=== PATIENT | male | born 1995 | race Caucasian/White ===

== ENCOUNTER 2021-09-06 16:16 | Emergency (ER) | payer SELFPAY ==
--- NOTE | ~2021-09-06 | XR_ITS ---
XR knee LT 2V DATE: 09/06/2021 16:44 INDICATION: Knee injury. Anterior pain. TECHNIQUE: AP and crosstable lateral views COMPARISON: None FINDINGS: No fracture or dislocation, periosteal reaction or bone destruction, radiopaque intra-artic ular loose body or chondrocalcinosis or significant joint space narrowing. IMPRESSION: Negative Reviewed, dictated and finalized at location A. IMPRESSION: Negative
--- NOTE | ~2021-09-06 | XR_ITS ---
XR foot LT 2V DATE: 09/06/2021 16:44 INDICATION: Foot injury, pain TECHNIQUE: AP and lateral views COMPARISON: None FINDINGS: No fracture or dislocation, periosteal reaction or bone destruction. Joint spaces are prese rved. No erosive change. IMPRESSION: Negative Reviewed, dictated and finalized at location A. IMPRESSION: Negative
--- NOTE | ~2021-09-06 | XR_ITS ---
XR ankle LT 2V DATE: 09/06/2021 16:44 INDICATION: Ankle injury. Lateral pain. TECHNIQUE: 2 views COMPARISON: None FINDINGS: No fracture or dislocation of the ankle or disruption of the ankle mortise. No periosteal r eaction or bone destruction. IMPRESSION: Negative Reviewed, dictated and finalized at location A. IMPRESSION: Negative
[2021-09-06 16:20] VITALS: BP 155/99; PULSE 90; RESP 16; TEMP 36.6; O2SAT 98
[2021-09-06] MEDS: KETOROLAC (*BKC) 60 MG/2 ML VIAL IM (16:42)
--- NOTE | 2021-09-06 17:02 | ED.LOWEXIN ---
HPI - Extremity Injury (Lower) General Chief Complaint: Extremity Injury, Lower Stated Complaint: LT leg injury Source: patient and family Mode of arrival: ambulatory Limitations: no limitations History of Present Illness HPI Narrative: this is a 26-year-old male that presents with some left foot ankle and knee pain with some mild swelling after he was at work and was working with some cows and was thrown by a [place] and landing on his foot and ankle causing pain that he rates at about a 7/10 with some mild swelling decreased range of motion secondary to swelling and pain. MD complaint: knee injury, ankle injury, foot injury and fall Onset (ago): hour(s) Type of Injury: blunt and inversion Place: work Severity: moderate Severity scale (1-10): 7 Relieving factors: immobilization and rest Exacerbating factors: weight bearing, movement and palpation Related Data Home Medications Medication Instructions Recorded Confirmed cetirizine 10 mg capsule (Zyrtec) 10 mg PO DAILY 09/06/21 09/06/21 Allergies Allergy/AdvReac Type Severity Reaction Status Date / Time No Known Allergies Allergy Unverified 09/06/21 16:30 Review of Systems Review of Systems: All systems reviewed & are unremarkable except as noted in HPI and below PMFSH Past Medical History Medical History Patient denies medical problems Exam Const: General: healthy appearing Limitations: no limitations HENMT: Head: normal to inspection Eyes: Conjunctivae: conjunctivae normal Neck: Neck: normal visual inspection Chest: Chest palpation & inspection: normal inspection of the chest Cardio: Rate: regular rate Rhythm: regular rhythm GI: GI Palp: Yes Soft to palpation Auscultation: normal bowel sounds Skin: General skin exam: normal color Rashes: no rashes Wounds: no wounds Neuro: General: patient oriented x3 and moves all extremities Extrem: Other: tender and mild swelling and left foot and ankle Psych: Mental Status: mental status grossly normal Affect: normal affect Course Course Emergency Course: patient received IM Toradol and reassessment of patient pain has improved and x-rays reviewed with patient will place an Quinn wrap on the foot and ankle and advised patient to take ibuprofen. Vital Signs Vital signs: Vital Signs Temperature 36.6 C 09/06/21 16:20 Pulse Rate 90 09/06/21 16:20 Respiratory Rate 16 09/06/21 16:20 Blood Pressure 155/99 H 09/06/21 16:20 Pulse Oximetry 98 09/06/21 16:20 Oxygen Delivery Room Air 09/06/21 16:20 Temperature 36.6 C 09/06/21 16:20 Pulse Rate 90 09/06/21 16:20 Respiratory Rate 16 09/06/21 16:20 Blood Pressure 155/99 H 09/06/21 16:20 Pulse Oximetry 98 09/06/21 16:20 Oxygen Delivery Room Air 09/06/21 16:20 Critical Care Time Critical Care Time Critical Care Time: No Discharge Plan Discharge Clinical Impression: Ankle sprain and strain Patient Disposition: Home, Self-Care Condition: Stable Instructions: Antibiotic Form, Ankle Sprain (ED) Additional Instructions: can take ibuprofen 600mg twice daily with meals continue Quinn wrap keep elevated and can use ice to affected area. Prescriptions: No Action Zyrtec 10 mg Capsule 10 mg PO DAILY Follow-up/Referrals: UNKNOWN,DOCTOR [Primary Care Provider] - Stand Alone Forms: Work/School Release IP Time of Disposition: 17:07
[2021-09-06 17:35] VITALS: BP 141/80; PULSE 62; RESP 16; TEMP 36.4; O2SAT 99
== END 2021-09-06 17:35 | disposition home or self-care (01) ==
PROVIDERS: Emergency Provider Emergency Medicine
DX: S93.402A Sprain of unspecified ligament of left ankle, initial encounter (principal)
CPT/HCPCS: 73560; 73600; 73620; 96372; 99284; J1885

== ENCOUNTER 2021-11-03 12:31 | Emergency (ER) | payer SELFPAY ==
--- NOTE | ~2021-11-03 | XR_ITS ---
EXAMINATION: XR hand RT min 3V DATE: 11/03/2021 12:48 INDICATION: Right hand injury and pain. TECHNIQUE: 3 views of right hand were obtained. COMPARISON: None. FINDINGS: There is a comminuted fracture of neck of fifth metacarpal. The main distal fracture fragme nt demonstrates impaction and 25 degrees palmar angulation. Joint spaces are normal. IMPRESSION: 1. Comminuted fracture of neck of fifth metacarpal. Reviewed, dictated and finalized at location A.
[2021-11-03 12:32] VITALS: PULSE 80; RESP 18; TEMP 36.6; O2SAT 99
[2021-11-03 12:35] VITALS: BP 153/83; PULSE 70; RESP 14; TEMP 36.4; O2SAT 99
--- NOTE | 2021-11-03 13:04 | ED.UPPEXIN ---
HPI - Extremity Injury (Upper) General Chief Complaint: Extremity Injury, Upper Stated Complaint: right hand injury Time Seen by Provider: 11/03/21 12:34 Source: patient and family Mode of arrival: ambulatory Limitations: no limitations History of Present Illness HPI narrative: this is a 26-year-old gentleman that presents with swelling and pain to his right hand after he punched a wall at work about 2 to 3 days ago causing some swelling and discomfort, he rates his pain about a 7/10 did take some ibuprofen yesterday. Currently there is no numbness or tingling patient has a brisk radial pulse on the right. complaint: injury to: right Onset (ago): day(s) Other Extremity Injury: Right: hand ( swelling with pain) Handedness: right Place: work Severity: moderate Severity scale (1-10): 7 Relieving factors: cold therapy and immobilization Related Data Allergies Allergy/AdvReac Type Severity Reaction Status Date / Time No Known Allergies Allergy Verified 11/03/21 12:49 Review of Systems Review of Systems: All systems reviewed & are unremarkable except as noted in HPI and below PMFSH Past Medical History Medical History Patient denies medical problems Exam Const: General: healthy appearing HENMT: Head: normal to inspection Face and sinus: normal facial exam Mouth: Yes Normal oral and palatal mucosa present Eyes: Conjunctivae: conjunctivae normal Neck: Neck: normal visual inspection, no lymphadenopathy and no meningeal signs Chest: Chest palpation & inspection: normal inspection of the chest Resp: Effort & Inspection: normal respiratory effort Auscultation: clear to auscultation bilaterally Cardio: Rate: regular rate Rhythm: regular rhythm GI: GI Palp: Yes Soft to palpation Auscultation: normal bowel sounds Back/Spine/Pelvis: Back: no CVA tenderness Skin: General skin exam: normal color Rashes: no rashes Wounds: no wounds Neuro: General: patient oriented x3 and moves all extremities Cranial nerves: Yes Nystagmus not present Extrem: Other: Swelling and decreased range of motion of his right hand Psych: Mental Status: mental status grossly normal Affect: normal affect Course Course Emergency Course: reassessment patient after receiving Toradol pain level has improved reviewed x-rays and advised follow-up with Orthopedics and will place an ulnar gutter. Spoke with Dr. Lozano was on-call at [facility] and the patient was accepted for a visit in office for further evaluation and treatment. Vital Signs Vital signs: Vital Signs Temperature 36.6 C 11/03/21 12:32 Pulse Rate 80 11/03/21 12:32 Respiratory Rate 18 11/03/21 12:32 Pulse Oximetry 99 11/03/21 12:32 Oxygen Delivery Room Air 11/03/21 12:32 Temperature 36.4 C L 11/03/21 12:35 Pulse Rate 70 11/03/21 12:35 Respiratory Rate 14 11/03/21 12:35 Blood Pressure 153/83 H 11/03/21 12:35 Pulse Oximetry 99 11/03/21 12:35 Oxygen Delivery Room Air 11/03/21 12:35 Critical Care Time Critical Care Time Critical Care Time: No Discharge Plan Discharge Clinical Impression: Closed boxer's fracture Qualifiers: Encounter type: initial encounter Qualified Code(s): S62.339A - Displaced fracture of neck of unspecified metacarpal bone, initial encounter for closed fracture Patient Disposition: Home, Self-Care Condition: Stable Instructions: Antibiotic Form, Boxer Fracture (ED) Additional Instructions: advised to follow-up with orthopedics and take medicine as prescribed. Prescriptions: New tramadol [Ultram] 50 mg tablet 50 mg PO Q6H PRN (Reason: pain) Qty: 20 0RF Follow-up/Referrals: UNKNOWN,DOCTOR [Primary Care Provider] - Time of Disposition: 13:18
[2021-11-03] MEDS: KETOROLAC (*BKC) 60 MG/2 ML VIAL IM (13:22)
[2021-11-03 13:32] VITALS: BP 140/68; PULSE 79; RESP 16; TEMP 36.5; O2SAT 100
== END 2021-11-03 13:34 | disposition home or self-care (01) ==
PROVIDERS: Emergency Provider Emergency Medicine
DX: S62.339A Displaced fracture of neck of unspecified metacarpal bone, initial encounter for closed fracture (principal); S62.336A Displaced fracture of neck of fifth metacarpal bone, right hand, initial encounter for closed fracture; W22.01XA Walked into wall, initial encounter
CPT/HCPCS: 29125; 73130; 96372; 99284; A4565; J1885